=== PATIENT | male | born 1995 | race Asian ===

== ENCOUNTER 2018-03-12 14:36 | Emergency (ER) | payer OTHER ==
[~2018-03-12] VITALS: Ht 172.7 cm; Wt 63.6 kg
[2018-03-12] MEDS ORDERED: KETOROLAC TROMETHAMINE 10 MG TABLET PO ONE (16:00)
[2018-03-12 16:34] VITALS: BP 121/68
== END 2018-03-12 17:10 | disposition home or self-care (01) ==
LOC: EMS 14:37
DX: R51 Headache (principal); V49.9XXA Car occupant (driver) (passenger) injured in unspecified traffic accident, initial encounter; Y93.89 Activity, other specified; Y92.411 Interstate highway as the place of occurrence of the external cause; Y99.8 Other external cause status
CPT/HCPCS: 99282; 99283